=== PATIENT | male | born 1995 | race African-American/Black ===

== ENCOUNTER 2022-08-20 23:57 | Emergency (ER) | payer MEDICAID ==
[~2022-08-20] VITALS: Ht 190.5 cm; Wt 78.5 kg
[2022-08-21 00:02] VITALS: BP_SYST 124
[2022-08-21 00:14] VITALS: BP_SYST 124
== END 2022-08-21 00:12 ==
LOC: SED 23:57
DX: Z02.89 Encounter for other administrative examinations (principal); Z79.899 Other long term (current) drug therapy; V89.2XXA Person injured in unspecified motor-vehicle accident, traffic, initial encounter; Y93.89 Activity, other specified; Y92.89 Other specified places as the place of occurrence of the external cause; Y99.8 Other external cause status
CPT/HCPCS: 99283